=== PATIENT | female | born 1935 | race Caucasian/White ===

== ENCOUNTER → 2017-01-22 | Outpatient (CLI) | payer MEDICARE ==
[2016-02-13 15:00] VITALS: BP 108/52
[~2017-01-22] MED LIST: ASPI81TA2 PO; BUME1TAB PO; CETI10TA16 PO; GABA-586 PO; GUAI600T38 PO; LOSA50TA6 PO; LOTE5DRO2 EACHEYE; METO25TA4 PO; METO50TA2 PO; MULT1TAB52 PO; OMEG500C PO; POTA10TA31 PO; RIVA15TA PO; SOLI5TAB PO
--- NOTE | 2017-01-22 13:02 | RAD ---
CT of the chest without contrast, 01/22/2017: History: Interstitial lung disease Noncontrast scans were obtained as requested and compared to a study from 01/24/2016. There are calcified granulomata in the right lower lobe. There are mild ongoing peripheral opacities located primarily in the right lower lobe posteriorly and in the left lower lobe laterally. These are predominantly linear and reticular in nature. These findings are unchanged and suggest scarring. No new pulmonary opacities are seen. No significant consolidation or pulmonary mass is evident. No pleural fluid is seen. There is mild calcific plaquing of the aorta without evidence of aneurysm. There are granulomatous calcifications at the right hilum. No mediastinal adenopathy is seen. IMPRESSION: 1. Stable mild peripheral opacities in both lower lobes compatible with scarring. 2. Old healed granulomatous disease in the chest. 3. No new abnormality is detected. PQRS Compliance Statement: One or more of the following individualized dose reduction techniques were utilized for this examination: 1. Automated exposure control 2. Adjustment of the mA and/or kV according to patient size 3. Use of iterative reconstruction technique
== END | disposition home or self-care (01) ==
LOC: CT 12:25
PROVIDERS: ATTEND Internal Medicine Critical Care Medicine
DX: J84.9 Interstitial pulmonary disease, unspecified (principal)
CPT/HCPCS: 71250